=== PATIENT | female | born 1940 | race Caucasian/White ===

== ENCOUNTER 2018-01-11 12:58 | Emergency (ER) | payer MEDICARE ==
[~2018-01-11] VITALS: Ht 172.7 cm; Wt 91.8 kg
[2018-01-11 13:22] VITALS: BP 131/78
== END 2018-01-11 14:41 | disposition home or self-care (01) ==
LOC: ER 13:00
DX: R20.2 Paresthesia of skin (principal); M79.642 Pain in left hand; G62.9 Polyneuropathy, unspecified; Z86.73 Personal history of transient ischemic attack (TIA), and cerebral infarction without residual deficits
CPT/HCPCS: 99281